=== PATIENT | male | born 1965 | race African-American/Black ===

== ENCOUNTER 2021-01-01 11:57 | Emergency (ER) | payer BC ==
[2021-01-01 15:08] LABS: HEMOGLOBIN 13.1 gm/dl (14.0-17.5); RED BLOOD COUNT 4.5 M/UL (4.20-5.50); WHITE BLOOD COUNT 12.1 K/UL (4.5-11.0)
[2021-01-01 15:26] LABS: BUN/CREATININE RATIO 16 (0-10)
[2021-01-01] MEDS ORDERED: HYDROCODON-ACE1 EAC4 PO ×2 (15:37→15:57)
[2021-01-01] MEDS ORDERED: NORFLEX 100 MG100 MG PO (16:04)
[2021-01-01] MEDS ORDERED: BACTROBAN OINT22 GM EXT (16:04)
[2021-01-01] MEDS ORDERED: IBUPROFEN600 MG PO (16:04)
== END 2021-01-01 17:00 | disposition home or self-care (01) ==
LOC: ER1 11:57
PROVIDERS: Physician Assistant Medical
DX: S81.012A Laceration without foreign body, left knee, initial encounter (principal); S01.81XA Laceration without foreign body of other part of head, initial encounter; S42.001A Fracture of unspecified part of right clavicle, initial encounter for closed fracture; I10 Essential (primary) hypertension; V86.59XA Driver of other special all-terrain or other off-road motor vehicle injured in nontraffic accident, initial encounter; Y92.009 Unspecified place in unspecified non-institutional (private) residence as the place of occurrence of the external cause
CPT/HCPCS: 12001; 12013; 70450; 71045; 71260; 72125; 73030; 73060; 73552; 73564; 80053; 85025; 96374; 96375; 99284; J2270; J2405; Q9967